=== PATIENT | male | born 1960 | race Caucasian/White ===

== ENCOUNTER → 2017-08-21 | Outpatient (CLI) | payer OTHER ==
[~2017-08-21] MED LIST: ASPIRIN81 M1 PO; CRESTOR20 MG PO; ENABLEX15 MG PO; MULTIVITAMINS1 EAC8; NORCO 10-325 T1 EACH PO; PYRIDIUM200 MG PO
--- NOTE | 2017-08-21 18:00 | Diagnostic Imaging Report ---
PROCEDURE:X-RAY ABDOMEN - KUB COMPARISON:[facility], DX, ABDOMEN-1VIEW (KUB), 03/06/2017, 13:45. INDICATIONS:CALCULUS OF KIDNEY FINDINGS: Nonobstructive bowel gas pattern with moderate amount of retained stool, which partly obscures the renal shadows. Previously visualized punctate radiopaque densities projecting over bilateral renal shadows are not clearly seen on the current exam. No radiopaque densities project over the expected course of the ureters or bladder. Stable metallic clips in the pelvis and nonaggressive appearing 1.4 cm focal sclerotic lesion in the left iliac wing. . CONCLUSION: Renal shadows are partially obscured by moderate amount of retained stool. The previously described radiopaque densities projecting over bilateral renal shadows are not seen on the current exam. No radiopaque densities project over the expected course of ureters or bladder. Rubio Hugo M.D. Dictated by: Rubio Hugo M.D. on 08/21/2017 at 18:01 Electronically approved by: Rubio Hugo M.D. on 08/21/2017 at 18:01
== END ==
LOC: RAD 16:19
PROVIDERS: ATTEND Urology
DX: N20.0 Calculus of kidney (principal)
CPT/HCPCS: 74018

== ENCOUNTER → 2018-03-05 | Outpatient (CLI) | payer OTHER ==
--- NOTE | 2018-03-05 15:54 | Diagnostic Imaging Report ---
Exam: Abdominal film Clinical History: Renal stones Comparison: None. DISCUSSION: Bowel gas pattern shows no dilated, air-filled loops of bowel. No calcifications project over the renal shadows or expected ureteral courses. Multiple pelvic surgical clips. Regional skeletal structures are intact. Degenerative disc changes of the lower lumbar spine. Radiodensity projecting over the left iliac wing may represent a bone island or high density bowel contents. IMPRESSION: No plain film evidence of urolithiasis. Signed by: Dr. Eric Hu M.D. on 03/05/2018 3:50 PM
== END ==
LOC: RAD 14:46
PROVIDERS: ATTEND Urology
DX: N20.0 Calculus of kidney (principal)
CPT/HCPCS: 74018

== ENCOUNTER → 2019-03-03 | Outpatient (CLI) | payer OTHER ==
--- NOTE | 2019-03-03 15:30 | Diagnostic Imaging Report ---
Exam: KUB - 2 views Indication: Renal calculi Comparison: Multiple prior KUBs, most recently 03/05/2018 Findings: Tiny calcific density overlying the lower pole of the left renal silhouette may represent a renal calculus. No other radiographically apparent renal calculi. Sclerotic lesion at the left iliac bone appears stable dating back to at least 03/06/2017 and is likely benign. Surgical clips in the pelvis. Not certain bowel gas pattern. Degenerative changes of the visualized spine and both hip joints. Impression: Tiny 1 to 2 mm calcific density overlying the lower pole of the left renal silhouette may represent renal calculus. Signed by: Mariama Aponte MD on 03/03/2019 3:27 PM
== END ==
LOC: RAD 14:18
PROVIDERS: ATTEND Urology
DX: N20.0 Calculus of kidney (principal)
CPT/HCPCS: 74018

== ENCOUNTER → 2020-01-14 | Outpatient (CLI) | payer OTHER ==
--- NOTE | 2020-01-14 12:52 | Diagnostic Imaging Report ---
EXAM: ABDOMEN-1VIEW (KUB) DATE: 01/14/2020 12:10 PM INDICATION: Renal calculi COMPARISON: 03/03/2019 FINDINGS: Bowel gas pattern is nonobstructive. Bowel gas partially appears renal shadows limiting evaluation. 3 punctate calcific densities noted overlying the right renal shadow which may represent renal calculi. The largest measures 2 mm and appears unchanged from the prior examination.. No left-sided renal calculi are appreciated. Multiple surgical clips noted within the pelvis. Stable sclerotic lesion noted within the left iliac bone. No acute osseous abnormalities identified. IMPRESSION: Tiny calcific densities projecting over the right kidney which may represent renal calculi, unchanged from the prior examination. Signed by: Dr. Victorino Uribe MD on 01/14/2020 12:49 PM
== END ==
LOC: RAD 11:47
PROVIDERS: ATTEND Urology
DX: N20.0 Calculus of kidney (principal)
CPT/HCPCS: 74018

== ENCOUNTER → 2020-07-21 | Outpatient (CLI) | payer OTHER | LOC: CT 15:26 | PROVIDERS: ATTEND Urology | DX: N20.0 Calculus of kidney (principal) | CPT/HCPCS: 74176 ==

== ENCOUNTER → 2020-08-25 | Day surgery (SDC) | payer OTHER ==
[~2020-08-25] MED LIST changes: +ACETAMINOPHEN/CODEINE 300MG - 30MG TAB ONE; +ATROPINE SULFATE 1 MG/ML VIAL ONE; +B&O 60MG R/S 60 MG SUPP PR ONE; +CEFTRIAXONE SOD 1 GM VIAL ONE; +DEXAMETHASONE SOD PHOS INJ 4 MG/ML VIAL ONE; +FENTANYL CITRATE/PF 100MCG/2 ML INJ ONE; +GLYCOPYRROLATE INJ 0.2 MG/ML VIAL ONE; +HYDROCHLOROTHIA25 MG PO; +IOPAMIDOL 300MG/ML 50ML INFUS..BTL IV ONE; +KETOROLAC TROMETHAMINE 30 MG/ML VIAL ONE; +LIDOCAINE HCL 2% LOCAL INJ 5 ML SDV VIAL INJ ONE; +MIDAZOLAM HCL 2 MG/2 ML VIAL ONE; +ONDANSETRON HCL INJ 2MG/ML 2ML 2 MG/ML VIAL ONE; +PROPOFOL IV EMULSION 10 MG/ML 20 ML VIAL ONE; +SEVOFLURANE INHAL SOLN 250 ML PEN BTL ONE; +SODIUM CHLORIDE 0.9% 50ML 50 ML ONE; +SOLIFENACIN SUCCINATE 5 MG TAB ONE; +SYNTHROID125 MCG PO
[2020-08-25 11:48] VITALS: BP 133/85
== END | disposition home or self-care (01) ==
LOC: OR 06:41
PROVIDERS: ATTEND Urology
DX: N20.0 Calculus of kidney (principal); N20.1 Calculus of ureter; N13.30 Unspecified hydronephrosis; N32.89 Other specified disorders of bladder; Z98.890 Other specified postprocedural states; N28.89 Other specified disorders of kidney and ureter; Z85.46 Personal history of malignant neoplasm of prostate; E78.00 Pure hypercholesterolemia, unspecified; E03.9 Hypothyroidism, unspecified; R00.1 Bradycardia, unspecified; K21.9 Gastro-esophageal reflux disease without esophagitis; Z01.810 Encounter for preprocedural cardiovascular examination; Z01.812 Encounter for preprocedural laboratory examination; Z01.818 Encounter for other preprocedural examination; Z20.822 Contact with and (suspected) exposure to COVID-19
CPT/HCPCS: 50590; 52332; 52351; 74018; 93005; C1758; C1769; C2617; J0461; J0696; J1100; J1885; J2001; J2250; J2405; J2704; J3010; Q9967; U0002

== ENCOUNTER → 2021-01-10 | Outpatient (CLI) | payer OTHER ==
[~2021-01-10] MED LIST changes: -ACETAMINOPHEN/CODEINE 300MG - 30MG TAB ONE; -ATROPINE SULFATE 1 MG/ML VIAL ONE; -B&O 60MG R/S 60 MG SUPP PR ONE; -CEFTRIAXONE SOD 1 GM VIAL ONE; -DEXAMETHASONE SOD PHOS INJ 4 MG/ML VIAL ONE; -FENTANYL CITRATE/PF 100MCG/2 ML INJ ONE; -GLYCOPYRROLATE INJ 0.2 MG/ML VIAL ONE; -IOPAMIDOL 300MG/ML 50ML INFUS..BTL IV ONE; -KETOROLAC TROMETHAMINE 30 MG/ML VIAL ONE; -LIDOCAINE HCL 2% LOCAL INJ 5 ML SDV VIAL INJ ONE; -MIDAZOLAM HCL 2 MG/2 ML VIAL ONE; -ONDANSETRON HCL INJ 2MG/ML 2ML 2 MG/ML VIAL ONE; -PROPOFOL IV EMULSION 10 MG/ML 20 ML VIAL ONE; -SEVOFLURANE INHAL SOLN 250 ML PEN BTL ONE; -SODIUM CHLORIDE 0.9% 50ML 50 ML ONE; -SOLIFENACIN SUCCINATE 5 MG TAB ONE
== END ==
LOC: RAD 14:40
PROVIDERS: ATTEND Urology
DX: N20.0 Calculus of kidney (principal)
CPT/HCPCS: 74018

== ENCOUNTER → 2021-07-16 | Outpatient (CLI) | payer OTHER | LOC: RAD 14:27 | PROVIDERS: ATTEND Urology | DX: N20.0 Calculus of kidney (principal) | CPT/HCPCS: 74018 ==